=== PATIENT | male | born 1960 | race Caucasian/White ===

== ENCOUNTER 2017-10-22 21:16 | Emergency (ER) | payer BC ==
[2017-10-22] MEDS ORDERED: Labetalol IV* 5 MG/ML 20 ML VIAL IV PUSH ONE ×2 (21:45→23:20)
[2017-10-22] MEDS ORDERED: LORazepam INJ* 2 MG/ML 1 ML VIAL IV PUSH ONE (21:45)
[2017-10-22 22:15] LABS: ABS Basophils 0 10^3/ul (0-0.2); ABS Eosinophils 0.1 10^3/ul (0-0.6); ABS Lymphocytes 1.8 10^3/ul (1.0-4.8); ABS Monocytes 0.6 10^3/ul (0-0.8); ABS Neutrophils 7.3 10^3/ul (1.5-7.7); ABS Nucleated RBC 0 10^3/ul; Hematocrit 45 % (42-52); Hemoglobin 15.7 g/dl (14.0-18.0); Lymphocyte % 17.9 % (25-47); Mean Corpuscular HGB Conc 35 g/dl (31-36); Mean Corpuscular Hemoglobin 29 pg (27-31); Mean Corpuscular Volume 83 fL (80-94); Mean Platelet Volume 8 um3 (7.4-10.4); Nucleated Red Blood Cells % 0.1; Platelet Count 249 10^3/ul (150-450); Red Blood Count 5.38 10^6/ul (4.0-5.4); Red Cell Distribution Width 14 % (10.5-15); White Blood Count 9.8 10^3/ul (3.5-10.8)
[2017-10-22 22:37] LABS: EGFR Non-African American 76.5 (>60)
[2017-10-23] MEDS ORDERED: Lisinopril TAB* 5 MG PO ONE (00:36)
[2017-10-23] MEDS ORDERED: ALPRAZolam TAB* 0.5 MG PO ONE (00:36)
--- NOTE | 2017-10-23 00:48 | ED ---
Angel Dominique Tecjoon, scribrayo for Buck Rob MD on 10/22/17 at 2147 . HPI Cardiac - HPI Summary HPI Summary: This patient is a 57 year old male presenting to [facility] with a chief complaint of hypertension since approx. 2100 today. Patient states that he has also been feeling very flushed. The pain is rated 0/10 in severity. Symptoms aggravated by nothing. Symptoms alleviated by nothing. The patient treated the pain with nothing [employer]. Patient denies fever, nausea, chest pain. Patient was dx with HTN May 2017, and opted not to take medication. Patient stated he instead dieted and exercised, which helped sx. Lately, his blood pressure has been elevated, reaching the highest this evening. - History of Current Complaint Chief Complaint: EDHypertension Stated Complaint: HIGH BLOOD PRESSURE Time Seen by Provider: 10/22/17 21:29 Hx Obtained From: Patient Onset/Duration: Started Hours Ago, Still Present Timing: Constant Current Severity: None Pain Intensity: 0 Pain Scale Used: 0-10 Numeric Chest Pain Radiates: No Aggravating Factor(s): Nothing Alleviating Factor(s): Nothing Associated Signs and Symptoms: Positive: Negative - fever, nausea, chest pain - Allergy/Home Medications Allergies/Adverse Reactions: Allergies Allergy/AdvReac Type Severity Reaction Status Date / Time Penicillins Allergy Anaphylatic Verified 10/22/17 21:22 Shock tetanus toxoid, adsorbed Allergy Unknown Verified 10/22/17 21:22 Reaction Details PMH/Surg Hx/FS Hx/Imm Hx Previously Healthy: Yes Opthamlomology History: Denies: Hx Legally Blind EENT History: Denies: Hx Deafness Infectious Disease History: No Infectious Disease History: Denies: Traveled Outside the [place] in Last 30 Days - Family History Known Family History: Positive: Hypertension - Social History Alcohol Use: None Hx Substance Use: No Substance Use Type: Reports: None Hx Tobacco Use: No Smoking Status (MU): Never Smoked Tobacco Review of Systems Negative: Fever Positive: Other - elevated bp. Negative: Chest Pain Negative: Nausea All Other Systems Reviewed And Are Negative: Yes Physical Exam - Summary Physical Exam Summary: VITAL SIGNS: Reviewed. GENERAL: Patient is a well-developed and nourished male who is lying anxiously in the stretcher. Patient is not in any acute respiratory distress. HEAD AND FACE: No signs of trauma. No ecchymosis, hematomas or skull depressions. No sinus tenderness. EYES: PERRLA, EOMI x 2, No injected conjunctiva, no nystagmus. EARS: Hearing grossly intact. Ear canals and tympanic membranes are within normal limits. MOUTH: Oropharynx within normal limits. NECK: Supple, trachea is midline, no adenopathy, no JVD, no carotid bruit, no c- spine tenderness, neck with full ROM. CHEST: Symmetric, no tenderness at palpation LUNGS: Clear to auscultation bilaterally. No wheezing or crackles. CVS: Regular rate and rhythm, S1 and S2 present, no murmurs or gallops appreciated. ABDOMEN: Soft, non-tender. No signs of distention. No rebound no guarding, and no masses palpated. Bowel sounds are normal. EXTREMITIES: FROM in all major joints, no edema, no cyanosis or clubbing. NEURO: Alert and oriented x 3. No acute neurological deficits. Speech is normal and follows commands. SKIN: Dry and warm Triage Information Reviewed: Yes Vital Signs On Initial Exam: Initial Vitals Temp Pulse Resp BP Pulse Ox 98.6 F 98 18 191/120 98 10/22/17 21:17 10/22/17 21:17 10/22/17 21:17 10/22/17 21:17 10/22/17 21:17 Vital Signs Reviewed: Yes Diagnostics - Vital Signs Vital Signs Temp Pulse Resp BP Pulse Ox 10/22/17 21:39 100 20 191/123 98 10/22/17 21:17 98.6 F 98 18 191/120 98 - Laboratory Result Diagrams: 10/22/17 22:05 10/22/17 22:05 Lab Statement: Any lab studies that have been ordered have been reviewed, and results considered in the medical decision making process. - EKG 2149 Cardiac Rate: NL EKG Rhythm: Sinus Rhythm - 90 BPM EKG Interpretation: left anterior fascicular block, non-specific T-wave abnormalities Disposition - Course Course Of Treatment: This patient is a 57 year old male presenting to [facility] with a chief complaint of hypertension since approx. 2100 today. Patient was dx with HTN May 2017, and opted not to take medication. Patient stated he instead dieted and exercised, which helped sx. Lately, his blood pressure has been elevated, reaching the highest this evening. An EKG, taken 2150, reveals NSR ( 90 BPM), left anterior fascicular block, non-specific T-wave abnormality. Bloodwork Obtained. In the ED course the patient was given Xanax, Trandate, Prinivil, Ativan. Patient will be discharged with a diagnosis for hypertension and anxiety. Patient was given a prescription for Xanax and Prinivil and is advised to follow up with PCP on Wednesday. The patient is agreeable with this plan. - Diagnoses Provider Diagnoses: Hypertension, Anxiety Discharge - Discharge Plan Condition: Stable Disposition: HOME Prescriptions: ALPRAZolam TAB* [Xanax TAB*] 0.5 mg PO BID PRN #10 tab MDD 2 PRN Reason: Anxiety Lisinopril TAB* [Prinivil TAB 5 MG*] 5 mg PO DAILY #30 tab Patient Education Materials: Hypertension (ED), Anxiety (ED) Referrals: Kg Walker MD [Primary Care Provider] - 10/25/17 Additional Instructions: Return to the ED for any new or worsening symptoms. The documentation as recorded by the Angel mobley Tecjoon accurately reflects the service I personally performed and the decisions made by Darron driscoll Abdul, MD.
[2017-10-23 01:01] VITALS: BP 158/105
== END 2017-10-23 01:00 | disposition home or self-care (01) ==
LOC: ED 21:16
DX: I10 Essential (primary) hypertension (principal); F41.9 Anxiety disorder, unspecified
CPT/HCPCS: 36415; 80053; 83735; 85025; 93005; 96374; 96375; 99283; A9270-GY; J2060